=== PATIENT | female | born 1995 | race Caucasian/White ===

== ENCOUNTER 2018-07-31 22:00 | Inpatient (IN) ==
[2018-07-31] MEDS ORDERED: Lidocaine 1% 20 ML MDV INFILT PRN (22:10)
[2018-07-31] MEDS ORDERED: *HR* Nalbuphine 10 MG/ML AMPUL IVP PRN (22:10)
[2018-07-31] MEDS ORDERED: Ondansetron 4 MG/2 ML VIAL IVP PRN (22:10)
[2018-07-31] MEDS ORDERED: Metoclopramide 10 MG/2 ML VIAL IVP PRN (22:10)
[2018-07-31] MEDS ORDERED: Naloxone 0.4 MG/ML INJ IVP PRN (22:10)
[2018-07-31] MEDS ORDERED: Famotidine 20 MG/2 ML VIAL IVP PRN (22:10)
[2018-07-31] MEDS ORDERED: Ringers Solution, Lactated 1,000 ML ONE (22:14)
[2018-07-31] MEDS ORDERED: Ringers Solution, Lactated 1,000 ML IVC SCH (22:15)
[2018-07-31] MEDS ORDERED: miSOPROStol 25 MCG TABLET VG PRN (22:30)
[2018-07-31 22:43] LABS: Basophils % 0.2 %; Eosinophils # 0.1 K/mcL (0.0-0.6); Eosinophils % 0.6 %; Hematocrit 31.8 % (35.3-44.9); Hemoglobin 10.7 g/dL (11.5-15.4); Lymphocytes # 1.7 K/mcL (0.6-4.6); Lymphocytes % 13.9 %; Mean Corpuscular HGB Conc 33.6 g/dL (31.6-35.5); Mean Corpuscular Hemoglobin 26.4 pg (28.0-33.3); Mean Corpuscular Volume 78.5 fL (83.0-100.0); Mean Platelet Volume 9.6 fL (9.4-12.4); Monocytes # 0.6 K/mcL (0.0-1.3); Monocytes % 5.2 %; Neutrophils # 9.7 K/mcL (1.6-8.9); Platelet Count 251 K/mcL (140-400); Red Blood Count 4.05 M/mcL (3.82-4.97); Red Cell Distribution Width 14.4 % (11.5-14.5); Segmented Neutrophils % 79.1 %
[2018-07-31 22:52] LABS: Amphetamine Screen,Urine Negative ng/mL (Cutoff=1000); Barbiturate Screen,Urine Negative ng/mL (Cutoff=200); Benzodiazepines Screen,Urine Negative ng/mL (Cutoff=200); Cannabinoid Screen,Urine Negative ng/mL (Cutoff = 50); Cocaine Screen,Urine Negative ng/mL (Cutoff= 300); Opiate Screen,Urine Negative ng/mL (Cutoff=300); Phencyclidine Screen,Urine Negative ng/mL (Cutoff=25)
--- NOTE | 2018-08-01 05:41 | OB/GYN History & Physical ---
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 Smith is a 23 year old female at 40 weeks 2 days gestation with an estimated date of of 07/29/18 dated by early ultrasound. She presents this evening for elective induction of labor. She endorses good movement and denies leakage of fluid, vaginal bleeding, contractions. She was followed during her by Dr. Garcia. She has had no complications with her . records are available electronically and have been reviewed. Labs: O+ GBS- Hep B- HIV- T. Palladium- GC/CL- Rubella immune Varicella immune Past Med Surg Social Fam HX - Past Medical History Medical history: no medical history Psychiatric history: no psych history - Past Surgical History Surgical History: other Additional surgical history: tonsillectomy - Social History Smoking Status: Never smoker Smokeless Tobacco Status: No Alcohol use: none Drug use: none - Family History Mother Age: 55 Living Status: Still Living Hx Family Cardiac Disorders: No Hx Family Respiratory Disorders: No Hx Family Cancer: No Hx Family GI Disorders: No Hx Family Genitourinary Disorders: No Hx Family Endocrine Disorder: No Hx Family Musculoskeletal Disorders: No Hx Family Neuromuscular Disorders: No Hx Family Neurologic Disorders: No Hx Family HEENT Disorders: No Hx Family Autoimmune Disorders: No Hx Family Reproductive Disorders: No Hx Family Psychosocial Disorders: No Hx Family Medical Disorders: No Obstetrical History - Pregnancies : 1 Para: 0 Term: 0 : 0 Ab's: 0 Livin Medications and Allergies Ferrous Sulfate 325 mg PO DAILY 07/31/18 [History] Formula Tablet 1 tab PO DAILY 07/31/18 [History] Allergy/AdvReac Type Severity Reaction Status Date / Time No Known Allergies Allergy Verified 07/31/18 22:20 Review of System OB All systems PM: reviewed and no additional remarkable complaints except as stated Exam - Vital Signs Vital signs: Initial Vital Signs Pulse Resp BP 86 16 133/78 07/31/18 22:10 07/31/18 22:10 07/31/18 22:10 - Constitutional Constitutional: well developed, well nourished, no acute distress, obese - HEENT HEENT: PERRL, Normocephaly, Mucus Membranes Moist - Neck Neck exam: full ROM - Lungs Respiratory exam: CTAB - Cardiovascular Cardiovascular exam: RRR, +S1, +S2 - Breasts Breast: bilateral: normal - Abdomen Abdomen: Present: bowel sounds normal, gravid, non tender - Extremities Extremities exam: normal capillary refill, normal inspection, pedal edema, radial pulses palpable and symmetrical - Vulva Vulva: bilateral: normal - Vagina Vagina: Present: normal moisture - Cervix Dilation: 1 Effacement: 50 Station: -2 - Uterus Uterus exam: Present: normal size, normal contour - Adnexa Adnexa: bilateral: normal - Anus/Rectum Anus/Rectum: Present: normal perianal skin Results Result Diagrams: 07/31/18 22:11 Abnormal lab results WBC 12.3 K/mcL (4.3-11.1) H 07/31/18 22:11 Hgb 10.7 g/dL (11.5-15.4) L 07/31/18 22:11 Hct 31.8 % (35.3-44.9) L 07/31/18 22:11 MCV 78.5 fL (83.0-100.0) L 07/31/18 22:11 MCH 26.4 pg (28.0-33.3) L 07/31/18 22:11 Neutrophils # 9.7 K/mcL (1.6-8.9) H 07/31/18 22:11 All other labs normal. - VTE Reasons for not Prescribing Prophylaxis: Treatment not Indicated - Low risk for VTE
[2018-08-01] MEDS ORDERED: EPHEDrine 50 MG/ML VIAL IVP PRN (07:55)
[2018-08-01] MEDS ORDERED: Epidural Premix (fent/bupiv) 110 ML EP SCH (08:00)
--- NOTE | 2018-08-01 08:36 | Event Note ---
Date of Encounter: 08/01/18 Time of Encounter: 08:30 23yo at 40+ws GA who presents for IOL yesterday evening after being seen in office. , cytotec given at 2200 yesterday evening. Has been mabel since this time. Light bleeding appreciated when wiping this AM. SVE this AM at 0830, 1-2/70/-1, head well applied. RNST with q2min contraction(s). Unable to augment medicinally at this time given tracing and back to back contraction(s). Cervical banegas placed with 40cc. Will plan to AROM patient when banegas is out, and place IUPC with hopes of starting pitocin pending toco. VSS, HDS afebrile. OK for intermittent monitoring at this time while patient is still intact. MD MELVIN
--- NOTE | 2018-08-01 08:47 | Anesthesia Evaluation PreOp ---
Date of Encounter: 08/01/18 Time of Encounter: 08:11 - Past History Planned Operation: vaginal del, G1 40wk induction Cardiac History: Denies any Significant Hx Pulmonary History: Denies Any Significant HX OFFICE ADMINISTRATION History: Denies Any Significant HX Other Medical History: Denies Any Significant HX Anesthesia History: No Prior Anesthetic Complications, Past Anesthesia (wisdom teeth - got a rash? no family hx.) Alcohol Use: none Drug use: none Medications and Allergies Ferrous Sulfate 325 mg PO DAILY 07/31/18 [History] Formula Tablet 1 tab PO DAILY 07/31/18 [History] Allergy/AdvReac Type Severity Reaction Status Date / Time No Known Allergies Allergy Verified 07/31/18 22:20 Anesthesia Results - Labs 07/31/18 22:11 Anesthesia Exam - HEENT Pupil (Motor): Pupils equal Mallampati: II Teeth: Normal Oral Opening: Greater than 3 - OFFICE ADMINISTRATION LOC: Oriented OFFICE ADMINISTRATION Motor: Normal RUE, Normal LUE, Normal RLE, Normal LLE, Normal Face OFFICE ADMINISTRATION Sensory: Normal: RUE, LUE, RLE, LLE, Face - Cardiac Rhythm: Regular Murmur: None - Pulmonary Breath Sounds: bilateral Clear Respiratory Effort: Symmetrical Anesthesia Assess/Plan ASA Score: 2 Level of consciousness: Cooperative, Oriented Anesthetic Plan: General, Spinal, Epidural Monitoring Plan: Standard Monitors Recovery Plan: PACU
[2018-08-01] MEDS ORDERED: Oxytocin 20 units/ LR 1000 mL 20 UNIT/1,000 ML BAG IVC SCH ×2 (11:15→23:36)
[2018-08-01] MEDS ORDERED: Lidocaine -MPF 2% 5 ML VIAL ONE (15:25)
--- NOTE | 2018-08-01 15:55 | Anesthesia Procedures ---
Addendum entered and electronically signed by Albert Doan CRNA 08/01/18 23:30: Infant Delivery Date: 08/01/18 Infant Delivery Time: 22:02 Original Note: Date of Encounter: 08/01/18 Time of Encounter: 15:36 Procedures: Anesthesia - Epidural/Spinal Patient ID/Chart reviewed: Yes Patient examined: Yes OB Eval: Gestational age: term OB Eval: : 1 OB Eval: Contractions: Non-stressed pattern Consent Obtained: Yes Supplemental Oxygen: None/Room Air Site Prep: Aseptic Technique, Sterile prep and drape, 0.5% Chlorhexidine/Alcohol Patient position: upright Local Anesthetic: Lidocaine 1% Amount of Local Anesthetic used: 2 Touhy Needle Gauge: 18 Touhy Needle Depth (cm): 6 Catheter Depth at Skin (cm): 10 Test Dose (1.5% Lido + Epi): Volume given (mls): 3 Test Dose Result: Negative Loading Dose: Other: 12 from solution Loading Dose Administered: Thru Catheter Infusion Med: 0.125% Bupivacaine w/ 2 mcg/ml Fentanyl Infusion Rate (mls/hr): [address]: Tegaderm, Tape Interspace Used: L3-L4 Loss of Resistance (EMERSON): Yes (saline) Blood: No CSF: No Paresthesia: No Procedure: vss though out procedure, FHR stable per RN's
--- NOTE | 2018-08-01 17:06 | OB Labor Progress Note ---
Date of Encounter: 08/01/18 Time of Encounter: 17:03 Labor Progress Note - Subjective Subjective: Called to room to check patient. SROM clear fluid. - Cervix Cervix: 5.5/90/-1 - Heart Tones Heart Tones: 140 bpm moderate variability +15x15 accels no decels noted Cat. 1 tracing - Tatamy Tatamy: 3-4 min apart - Interventions Interventions: SVE, IUPC placed without difficulty patient tolerated well. - Plan Plan: Continue labor management anticipate
--- NOTE | 2018-08-01 22:34 | OB/GYN Procedure Note ---
Delivery - Delivery Date: 08/01/18 Provider: Joyce Martinez Intrapartum events: none Delivery induction: AROM, oxytocin, banegas, misoprostol Delivery augmentation: rupture of membranes, pitocin Delivery monitor: external FHT, external uterine Anesthesia: epidural Quantitated Blood Loss: 350 - (s) Infant A Infant Delivery Date: 08/01/18 Infant Delivery Time: 22:02 Presentation: vertex Position: SAMANTA Route of delivery: Gender: Female Viability: Viable Shoulder Dystocia: not encountered Specimens collected: cord blood (Called to see patient at bedside when found to be C/C/+1. With adequate maternal effort, was pushed to +3 station. With control and adequately timed pushing, we delivered a female infant at 2202 over an intact perineum. DElivered head in SAMANTA position, delivered through body nuchal (loose) x1. Terminal meconium appreciated upon delivery of infant. Baby girl was vigorous and crying. 60 second cord delay was performed prior to clamping and cutting of the cord by FOB. Cord blood was obtained, and the placenta was delivered intant with minimal manipulation. Aggressive bimanuel was performed as the lower uterine segment was boggy. IV pitocin was initiated, and the uterus began to clamp down. Upon examination of the perineum, a second degree perineal lacteration was appreciated. This was repaired in the usual fashion using 3-0 vicryl suture. Hemostasis was appreciated after repair. Counts were correct x2.), venous cord gases, endometrial currettings (Baby girl) Placenta: spontaneous (Apgars: 9/9), uterine exploration (time: 2202), retained Cord: nuchal cord, delivered through nuchal - Repair Episiotomy: none Laceration Description: Perineal - 2nd Degree, Labial - Complications Delivery complications: none - Disposition Mom disposition: stable in LDR [place] disposition: stable in LDR
[2018-08-01] MEDS ORDERED: Oxytocin 20 units/ LR 1000 mL 20 UNIT/1,000 ML BAG IVC ONE (23:36)
[2018-08-01] MEDS ORDERED: Lanolin 7 G OINT...G. TP PRN (23:36)
[2018-08-01] MEDS ORDERED: *HR* Oxytocin 10 UNIT/ML VIAL IM ONE (23:36)
[2018-08-01] MEDS ORDERED: Measles/Mumps/Rubella Vacc 0.5 ML VIAL SQ PRN (23:36)
[2018-08-01] MEDS ORDERED: Ondansetron 4 MG/2 ML VIAL IVP PRN (23:36)
[2018-08-01] MEDS ORDERED: Benzocaine/Menthol 56 GM AEROSOL SPRAY TP PRN (23:36)
[2018-08-02] MEDS: Ibuprofen 600 MG TABLET PO PRN ×4 (02:53→22:11)
[2018-08-02] MEDS: Prenatal Vit/FA 1 EACH TABLET PO SCH (08:32)
[2018-08-02] MEDS ORDERED: Prenatal Vit/FA 1 EACH TABLET PO SCH (09:00)
[2018-08-02] MEDS ORDERED: NON-FORMULARY MEDICATION 1 EACH EACH (Ferrous Sulfate 325 MG) PO SCH (09:00)
[2018-08-02] MEDS: Acetaminophen 325 MG TABLET PO PRN (11:32)
--- NOTE | 2018-08-02 13:45 | OB/GYN Progress Note ---
Date of Encounter: 08/02/18 Time of Encounter: 13:40 - Assessment and Plan (1) 40 weeks gestation of Current Visit: Yes Status: Acute 23yo s/p NVSD at 40wks GA 1. care - meeting milestones - without difficulty - pain well controlled on po IBUprofen/tylenol - OK for DC to home 24hr PP or on POD#2 pending on patient desires - patient scheduled for f/u with Dr. Pizarro in office in 4-6 weeks Dispo: OK for DC to home tonight or tomorrow AM. MD MELVIN Subjective - Subjective Principal diagnosis: 23yo female s/p on 08/01 at 2202. Interval history: Paitent doing well, reports intermittent vaginal bleeding following delivery. Ambulating, passing flatus, and voiding. Sore abdomen. Thrilled with delivery. Baby girl, doing well, breast feeding. Patient reports: appetite normal, voiding normally, pain well controlled, ambulating normally : doing well Objective - Latest Vital Signs Latest vital signs: Vital Signs Temp Pulse Resp BP Pulse Ox 08/02/18 11:31 98.3 F 88 20 111/73 97 08/02/18 08:05 98.5 F 76 20 106/68 97 08/02/18 02:01 98.7 F 68 16 120/74 97 08/02/18 00:45 98.2 F 67 16 121/75 98 08/01/18 23:45 98.3 F 70 14 127/74 98 Intake and Output 08/01/18 08/02/18 08/02/18 23:59 07:59 15:59 Intake Total 560 / 560 Output Total 800 / 800 500 / 500 Balance -800 / -800 60 / 60 Intake: Oral 360 / 360 Free Water 200 / 200 Output: Urine 800 / 800 500 / 500 Other: Meal Lunch Percent of Meal Consumed 60% # Voids 1 Weight 96.6 kg - Exam Lungs: bilateral: normal Extremities: Present: normal Abdomen: Present: normal appearance, soft, tenderness Uterus: Present: firm Uterus Position: 2 Fingers Above Umbilicus
[2018-08-03] MEDS: Ibuprofen 600 MG TABLET PO PRN (06:30)
[2018-08-03] MEDS: Prenatal Vit/FA 1 EACH TABLET PO SCH (08:20)
[2018-08-03 08:39] VITALS: BP 123/79
--- NOTE | 2018-08-03 09:11 | Discharge Summary ---
Date of Encounter: 08/03/18 Time of Encounter: 09:07 - Discharge Diagnosis (1) Vaginal delivery Priority: Primary Status: Acute Comments: S/P Vaginal delivery day 2 Pain well controlled Lochia light without clots VSS Tolerating regular diet Passing flatus and urinating without difficulty Discharge home today - Discharge Medications Prescriptions: Ibuprofen [Motrin] 600 mg PO Q6HR PRN #30 tablet PRN Reason: Cramping Breast Pump [BREAST PUMP] 1 each .ROUTE AD 99 Days #1 each Docusate [Colace] 100 mg PO BID #30 capsule Home Medications: Ferrous Sulfate 325 mg PO DAILY 07/31/18 [History] Formula Tablet 1 tab PO DAILY 07/31/18 [History] Benzocaine/Menthol Morrison [Dermoplast Morrison] 1 appl TP QID PRN aerosol 08/03/18 [Rx] Breast Pump [BREAST PUMP] 1 each .ROUTE AD 99 Days #1 each 08/03/18 [Rx] Docusate [Colace] 100 mg PO BID #30 capsule 08/03/18 [Rx] Ibuprofen [Motrin] 600 mg PO Q6HR PRN #30 tablet 08/03/18 [Rx] Lanolin [Lansinoh] 1 appl TP QID PRN oint...g. 08/03/18 [Rx] Allergies/Adverse Reactions: Allergy/AdvReac Type Severity Reaction Status Date / Time No Known Allergies Allergy Verified 07/31/18 22:20 Data Procedures and tests throughout hospitalization: Laboratory Tests 07/31/18 07/31/18 22:10 22:11 WBC 12.3 H RBC 4.05 Hgb 10.7 L Hct 31.8 L MCV 78.5 L MCH 26.4 L MCHC 33.6 RDW 14.4 Plt Count 251 MPV 9.6 Immature Gran % 1.0 Seg Neutrophils % 79.1 Lymphocytes % 13.9 Monocytes % 5.2 Eosinophils % 0.6 Basophils % 0.2 Neutrophils # 9.7 H Lymphocytes # 1.7 Monocytes # 0.6 Eosinophils # 0.1 Basophils # 0.0 Urine Opiates Screen Negative Ur Barbiturates Screen Negative Ur Phencyclidine Scrn Negative Ur Amphetamines Screen Negative U Benzodiazepines Scrn Negative Urine Cocaine Screen Negative U Marijuana (THC) Screen Negative Ur Drug Screen Interp See Below Date of admission: 07/31/18 22:00 Primary care physician: PCP NONE Consults: 08/01/18 23:36 Consult to [employer] [CONS] Routine Comment: Vaginal delivery, consult needed Discharging clinician: Joyce Coelho Anticipated date of discharge: 08/03/18 - Patient Status Disposition: Home, Self-Care Condition: Good Functional capacity at discharge: independent ambulation Overall status at discharge: patient is progressing back to baseline - Discharge Instructions Follow Up With: NONE,PCP [Primary Care Provider] - Joyce Martinez MD [Partnered Physician] - - Diet and Activity Activity: increase activity as tolerated Diet: regular diet Hospital Course Reason for admission: IUP at term Delivery: Episiotomy: none Other procedures: none complications: none Discharge diagnosis: IUP at term delivered [place] baby: female Time Attestation: Total time spent providing and/or coordinating discharge services: Time Spent: Less than 30 minutes Exam - Constitutional Vitals: Temp Pulse Resp BP Pulse Ox 97.5 F L 81 14 123/79 97 08/03/18 08:38 08/03/18 08:38 08/03/18 08:38 08/03/18 08:38 08/03/18 08:38 General appearance IM: cooperative, A&O X 3, pleasant - Respiratory Respiratory exam: Present: CTAB - Cardiovascular Cardiovascular exam IM: Present: RRR, +S1 - GI/Abdominal GI/Abdominal exam IM: normal bowel sounds, soft - Rectal Rectal exam: deferred - Uterine Tone: Firm Uterus Position: 1 Finger Below Umbilicus, Midline - Extremities Exam Extremities exam IM: Present: normal capillary refill, normal inspection, radial pulses palpable and symmetrical - Neurological Exam Neurological exam: alert, oriented X3
[2018-08-03] MEDS: Acetaminophen 325 MG TABLET PO PRN (11:26)
[2018-08-03] MEDS ORDERED: Methylergonovine 0.2 MG/ML AMPUL IM ONE (11:58)
== END 2018-08-03 11:59 | disposition home or self-care (01) | DRG 807 ==
LOC: 1NENULAB 22:00 → 1NENUOBS 08-01 23:37
PROVIDERS: ADMIT Student in an Organized Health Care Education/Training Program; ATTEND Student in an Organized Health Care Education/Training Program